=== PATIENT | female | born 1950 | race Caucasian/White ===

== ENCOUNTER 2020-04-18 09:32 | Day surgery (SDC) | payer MEDICARE, OTHER ==
[~2020-04-18] VITALS: Ht 177.8 cm; Wt 102.4 kg
[2020-04-18] VITALS (10 sets, daily range): BP systolic 110–135; BP diastolic 54–79; PULSE 72–97; TEMP 98.5
[2020-04-18] MEDS ORDERED: METHOTREXA2.5 MG/TAB PO (10:26)
[2020-04-18] MEDS ORDERED: FOLIC ACID 11 MG/TA1 PO (10:27)
[2020-04-18] MEDS ORDERED: HUMIRA PEN40 MG/0.4 SQ (10:27)
[2020-04-18] MEDS ORDERED: PROTONIX 40MG T40 MG PO (10:28)
[2020-04-18] MEDS ORDERED: PEPCID 20MG TAB20 MG PO (10:28)
[2020-04-18] MEDS ORDERED: DIOVAN 160MG160 MG PO (10:29)
[2020-04-18] MEDS ORDERED: NORVASC 5MG5 MG/TAB PO (10:29)
[2020-04-18] MEDS ORDERED: SINGULAIR 110 MG/TAB PO (10:30)
[2020-04-18] MEDS ORDERED: ZYRTEC 10MG10 MG PO (10:30)
[2020-04-18] MEDS ORDERED: FLONASEALLERGY NS (10:30)
[2020-04-18] MEDS ORDERED: RT SPIRIVA18 MCG IH (10:31)
[2020-04-18] MEDS ORDERED: PROAIR HFA0.09 MG/AC IH (10:31)
[2020-04-18] MEDS ORDERED: RT ADVAIR 228 DISKUS IH (10:32)
[2020-04-18] MEDS ORDERED: LIPITOR 40MG TA40 MG PO (10:32)
[2020-04-18] MEDS ORDERED: MUCINEX 60600 MG/TA1 PO (10:33)
[2020-04-18] MEDS ORDERED: MASON NATURAL2000 IU PO (10:33)
[2020-04-18] MEDS ORDERED: ONE-A-DAY ESSE1 EACH PO (10:34)
[2020-04-18] MEDS ORDERED: FISH OIL 1000MG1 CAP PO (10:34)
[2020-04-18] MEDS ORDERED: PREDNISONE20 MG PO (10:35)
[2020-04-18 10:50] LABS: HEMOGLOBIN 12.3 g/dl (12.5-16.0); MEAN CELL VOLUME 99 fl (80.0-100.0); MEAN CORPUSCULAR HEMOGLOBIN 32 pg (27.0-31.0); MEAN CORPUSCULAR HGB CONC 32 g/dl (33.0-37.0); MEAN PLATELET VOLUME 9.8 fl (7.4-10.4); PLATELET COUNT 297 K/mm3 (130-400); RED BLOOD COUNT 3.84 M/mm3 (4.10-5.30); REDCELL DISTRIBUTION WIDTH-CV 13.6 % (11.5-14.5)
[2020-04-18 11:04] LABS: PROTHROMBIN TIME 10.6 SECONDS (9.7-12.8)
[2020-04-18 11:07] LABS: PARTIAL THROMBOPLASTIN TIME 28.6 SECONDS (26.0-37.0)
[2020-04-18 11:13] LABS: CALCIUM 9.8 mg/dL (8.4-10.2); CREATININE, serum 1.38 (0.52-1.25); POTASSIUM 4.3 mmol/L (3.4-5.0)
--- NOTE | 2020-04-18 12:08 | NUR ---
SEE MERGE FOR ALL MEDICATION ADMINISTRATION TIMES, INTRA AND POST SEDATION ASSESSMENT
--- NOTE | 2020-04-18 13:00 | NUR ---
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 pt aware of poc.
--- NOTE | 2020-04-18 16:15 | NUR ---
[facility] did well during recovery. TR band was deflated without incident, rt radial puncture site dressed with bandaid, folded 2x2 and coban, cms intact distal. i have revied dc and fu instructions with pt, no questions at time of departure. IV was dc'd, cath intact, dressing applied.
== END 2020-04-18 20:50 | disposition home or self-care (01) ==
LOC: COL.CAR 09:32
PROVIDERS: Internal Medicine Interventional Cardiology
DX: R06.02 Shortness of breath (principal); I25.10 Atherosclerotic heart disease of native coronary artery without angina pectoris; R94.39 Abnormal result of other cardiovascular function study; I65.23 Occlusion and stenosis of bilateral carotid arteries; I10 Essential (primary) hypertension; Z79.51 Long term (current) use of inhaled steroids; Z87.891 Personal history of nicotine dependence; Z91.041 Radiographic dye allergy status
CPT/HCPCS: J1200; J1644; J2250; J3010; Q9967

== ENCOUNTER → 2021-09-08 | Outpatient (CLI) | payer MEDICARE, OTHER ==
[~2021-09-08] MED LIST: DIOVAN 160MG160 MG PO; FISH OIL 1000MG1 CAP PO; FLONASEALLERGY NS; FOLIC ACID 11 MG/TA1 PO; HUMIRA PEN40 MG/0.4 SQ; LIPITOR 40MG TA40 MG PO; MASON NATURAL2000 IU PO; METHOTREXA2.5 MG/TAB PO; MUCINEX 60600 MG/TA1 PO; NORVASC 5MG5 MG/TAB PO; ONE-A-DAY ESSE1 EACH PO; PEPCID 20MG TAB20 MG PO; PREDNISONE20 MG PO; PROAIR HFA0.09 MG/AC IH; PROTONIX 40MG T40 MG PO; RT ADVAIR 228 DISKUS IH; RT SPIRIVA18 MCG IH; SINGULAIR 110 MG/TAB PO; ZYRTEC 10MG10 MG PO
== END ==
LOC: COL.RAD 12:39
DX: Z12.2 Encounter for screening for malignant neoplasm of respiratory organs (principal); F17.210 Nicotine dependence, cigarettes, uncomplicated

== ENCOUNTER 2021-10-19 06:19 | Day surgery (SDC) | payer MEDICARE, OTHER ==
[2021-10-19] VITALS (9 sets, daily range): BP systolic 124–145; BP diastolic 44–81; PULSE 52–66; TEMP 97.5–98
[~2021-10-19] VITALS: Ht 177.8 cm; Wt 78.3 kg
[2021-10-19] MEDS ORDERED: FOLIC ACID 11 MG/TA1 PO (06:28)
[2021-10-19] MEDS ORDERED: METHOTREXA2.5 MG/TAB PO (06:28)
[2021-10-19] MEDS ORDERED: HUMIRA(CF)40 MG/0.4 SQ (06:28)
[2021-10-19] MEDS ORDERED: PEPCID40 MG PO (06:29)
[2021-10-19] MEDS ORDERED: PROTONIX 40MG T40 MG PO (06:29)
[2021-10-19] MEDS ORDERED: DIOVAN320 MG PO (06:30)
[2021-10-19] MEDS ORDERED: FLONASEALLERGY NS (06:31)
[2021-10-19] MEDS ORDERED: ZYRTEC 10MG10 MG PO (06:31)
[2021-10-19] MEDS ORDERED: SINGULAIR 110 MG/TAB PO (06:31)
[2021-10-19] MEDS ORDERED: LIPITOR 40MG TA40 MG PO (06:32)
[2021-10-19] MEDS ORDERED: PROAIR HFA0.09 MG/AC IH (06:32)
[2021-10-19] MEDS ORDERED: STIOLTO RESPIMAT4 GM IH (06:32)
[2021-10-19] MEDS ORDERED: MASON NATURAL2000 IU PO (06:33)
[2021-10-19] MEDS ORDERED: EPA FISH OIL1000 MG PO (06:33)
[2021-10-19] MEDS ORDERED: MUCINEX 60600 MG/TA1 PO (06:33)
[2021-10-19] MEDS ORDERED: MULTI VITAMINS1 TAB PO (06:34)
[2021-10-19] MEDS ORDERED: TOPROL XL 25MG25 MG PO (06:34)
[2021-10-19] MEDS ORDERED: ASPIRIN 81M81 MG/TA2 PO (06:34)
[2021-10-19] MEDS ORDERED: OXYGEN NASAL.CANN (06:35)
[2021-10-19] MEDS ORDERED: DEMADEX10 MG PO (07:17)
--- NOTE | 2021-10-19 14:52 | NUR ---
PT TO ROOM 329 PER BED WITH REPORT FROM [facility] PACU @[id number]. PT IS A/O X4, LUNGS CTA WITH DIMINISHED BASES BILATERALLY. BOWEL SOUNDS PRESENT. DRESSING TO RIGHT KNEE CDI WITH HEMOVAC INTACT WITH MOD AMT OF BLOODY DRAINAGE. IV PER ORDERS. PT EATING AND DRINKING AT THIS TIME.
--- NOTE | 2021-10-19 22:01 | NUR ---
PATIENT ASLEEP ON ROOM ENTRY. AWAKENS EASILY. ALERT AND ORIENTED. HS MEDS PER EMAR. AMBULATED X1 ASSIST AND USE OF WALKER TO BATHROOM AND VOIDED CLEAR YELLOW URINE WITHOUT ISSUE. C/O MODERATE PAIN 6/10 AFTER WALKING AND PRN JOEY WAS GIVEN. R KNEE DRESSING CDI WITH HEMOVAC IN PLACE, DRAINING BLOODY OUTPUT, 110 MLS WAS DRAINED AT THIS TIME. SCD TO L LEG STARTED. ICE TO R KNEE. DENIES ADDITIONAL NEEDS. CURRENTLY RESTING IN BED, EYES CLOSED, RR EVEN AND UNLABORED.
[2021-10-20 00:03] VITALS: BP 104/41; PULSE 52; TEMP 97.5
[2021-10-20 04:27] VITALS: BP 122/41; PULSE 55; TEMP 97.5
[2021-10-20 06:42] LABS: HEMATOCRIT 28.5 % (37.0-47.0); HEMOGLOBIN 9.4 g/dl (12.5-16.0)
[2021-10-20 07:11] LABS: CALCIUM 8.5 mg/dL (8.4-10.2); CREATININE, serum 1.68 mg/dL (0.57-1.11); POTASSIUM 3.8 mmol/L (3.5-4.5)
[2021-10-20 07:48] VITALS: BP 119/58; PULSE 56; TEMP 97.8
--- NOTE | 2021-10-20 10:32 | NUR ---
Loader Operator met with patient to discuss discharge planning. Patient lives in [facility] with her , Kenny (ph#[phone]) and sees RADHA Sifuentes for primary care. Patient normally obtains medications from [place], however she wants to use [facility] in [place] for any discharge medications. Patient has a walker for recovery from her surgery, but normally does not use any DME and is independent with ADLS. Patient reports her , Kenny is her DPOA-HC. Patient plans to return home at discharge and hopes she can return home today. Discharge Plan: Home
[2021-10-20 11:39] VITALS: BP 122/46; PULSE 51; TEMP 97.4
[2021-10-20] MEDS ORDERED: CELEBREX 200MG200 MG PO (12:18)
[2021-10-20] MEDS ORDERED: ULTRAM ER100 MG PO (12:18)
[2021-10-20] MEDS ORDERED: ASPIRIN E.C. 8181 MG PO (12:18)
[2021-10-20] MEDS ORDERED: CEPHALEXIN500 M1 PO (12:18)
--- NOTE | 2021-10-20 14:00 | NUR ---
Initial visit; Patient thanked Elevator Adjuster for looking in on her and appears to be doing well. Patient seems very optimistic though asked Elevator Adjuster to keep her in her prayers.
--- NOTE | 2021-10-20 15:20 | NUR ---
PT DISCHARGED TO HOME WITH FAMILY VIA PRIVATE VEHICLE, TAKEN TO EXIT VIA WC PUSHED BY ASTER CAMPBELL. PT GIVEN DISCHARGE INSTRUCTIONS ET EDUCATION, VERBALIZES UNDERSTANDING. HEMOVAC WAS REMOVED BY HEBER TORRES ET TEGADERM DRESSING PLACED TO SITE. AQUACELL IS IN PLACE TO RIGHT KNEE. TEGADERM IN PLACE TO RIGHT MURPHY SKIN TEAR. PT HAS BEEN GIVEN EXTRA TEGADERMS FOR SKIN TEAR DRESSINGS. PT HAS WORKED WITH PT/OT TODAY, AMBULATES TO BR WITH WALKER ET SBA ET SITS IN CHAIR FOR MEALS.
== END 2021-10-20 15:20 | disposition home or self-care (01) ==
LOC: SDCO 06:19 → SURG 14:15 → SDCO 10-20 15:20
PROVIDERS: Orthopaedic Surgery
DX: M17.11 Unilateral primary osteoarthritis, right knee (principal); Z87.891 Personal history of nicotine dependence
CPT/HCPCS: OP; 99222; A9284; C1713; C1776; J0690; J1580; J1885; J2175; J2250; J2270; J2405; J2704; J2795; J7030; J7120; J8610

== ENCOUNTER 2021-12-30 07:24 | Day surgery (SDC) | payer MEDICARE, OTHER ==
[~2021-12-30] VITALS: Ht 180.3 cm; Wt 73.5 kg
[2021-12-30] VITALS (10 sets, daily range): BP systolic 94–128; BP diastolic 30–59; PULSE 50–76; TEMP 97.9–98
[~2021-12-30 07:24] MED LIST changes: +ASPIRIN 81M81 MG/TA2 PO; +ASPIRIN E.C. 8181 MG PO; +CELEBREX 200MG200 MG PO; +CEPHALEXIN500 M1 PO; +DEMADEX10 MG PO; +DIOVAN320 MG PO; +EPA FISH OIL1000 MG PO; +HUMIRA(CF)40 MG/0.4 SQ; +MULTI VITAMINS1 TAB PO; +OXYGEN NASAL.CANN; +PEPCID40 MG PO; +STIOLTO RESPIMAT4 GM IH; +TOPROL XL 25MG25 MG PO; +ULTRAM ER100 MG PO
--- NOTE | 2021-12-30 15:38 | NUR ---
HOSPITALIST TEAM ROUNDING, SEE ORDERS.
--- NOTE | 2021-12-30 15:45 | NUR ---
Patient arrived to the clinic alert and oriented. Lungs CTA, bowel sound active in all river. IVF infusing on the left hand without difficulty. Dressing and brace on left knee intact. Patient is able to move toes slightly. Patient denies pain at this time. Will continue monitoring patient.
--- NOTE | 2021-12-30 15:48 | NUR ---
Patient awake laying in the bed. VSS . Dressing on left knee intact. Ice chips offered. Patient tolerated well. Spouse at the bedside . Patient reports of feeling cold. Bear hugger provided. Spouse at the bedside and call tavarez within reach. Will continue monitoring patient.
--- NOTE | 2021-12-30 15:52 | NUR ---
Patient laying in bed awake, spouse at the bedside. VSS. Patient c/o feeling hungry and ordered regular meal. Patient c/o feeling nauseous from eating meal. Patient stopped eating lunch and liquids offered. Patient tolerated liquids well. Patient denies pain at this time. Will continue monitoring patient.
--- NOTE | 2021-12-30 16:21 | NUR ---
Patient resting in bed alert and oriented. Dressing on left knee intact. VSS . Patient denies of pain and n/v. IVF infusing. Call tavarez place within reach. Spouse at the bedside.
--- NOTE | 2021-12-30 17:12 | NUR ---
Patient awake in bed. VSS . Dressing on left knee intact. Patient denies episode of n/v and pain. Will continue to monitor patient.
--- NOTE | 2021-12-30 17:37 | NUR ---
Patient c/o severe pain at left knee. Patient rated pain level 10/10. Pain meds administered. Will reassess pain level Call tavarez place within reach.
--- NOTE | 2021-12-30 17:44 | NUR ---
Patient sleeping in bed. IVF infusing. Dressing intact. SCD in place. Will continue to monitor patient.
--- NOTE | 2021-12-30 17:49 | NUR ---
Patient alert and oriented. Patient attempts to eat dinner but felt a little bit nauseous and unabe to eat meal. Patient rated pain level 4/10. Call tavarez place within reach.
--- NOTE | 2021-12-30 21:15 | NUR ---
Patient A/O x 3, with IV infusing well on left hand, at 2100 patient vomited out brownish vomitus looks like with red jello and approximately 50ml, she felt fine after she puked, dressing clean dry and intact, with knee immobilizer, SCD's on, was able to get up to the bedside commode and peed, rated her pain as 1/10, will continue to monitor.
[2021-12-31 01:00] VITALS: BP 116/54; PULSE 57; TEMP 97.5
--- NOTE | 2021-12-31 03:00 | NUR ---
Patient got up to the bedside commode and peed, denies nausea/ vomiting, c/o of pain on the surgical site, oxycodone given, will continue to monitor, transfers 1-2 assist.
[2021-12-31 04:00] VITALS: BP 125/51; PULSE 62; TEMP 98.2
[2021-12-31 07:24] LABS: CALCIUM 8.3 mg/dL (8.4-10.2); CREATININE, serum 1.14 mg/dL (0.57-1.11); POTASSIUM 4.7 mmol/L (3.5-4.5)
[2021-12-31 07:25] LABS: HEMATOCRIT 25.7 % (37.0-47.0); HEMOGLOBIN 8.1 g/dl (12.5-16.0)
[2021-12-31 08:09] VITALS: BP 146/51; PULSE 68; TEMP 97.5
--- NOTE | 2021-12-31 08:22 | NUR ---
Pt doing well this morning. Pt does have some pain complaints, PRN pain medication given. Pt has been up to the restroom, standby assist with walker. Pt has also worked with PT this am, pt currently sitting up in the chair. Assisted her with ordering breakfast. Gave her some applesauce with crackers to eat with medications.
--- NOTE | 2021-12-31 10:18 | NUR ---
Initial visit; Patient thanked Nuclear Technician for loking in on her. Patient is doing well, she reports she had surgery on the other knee in October so she "knows the drill." Patient thanked Nuclear Technician for keeping her in her prayers.
[2021-12-31 11:41] VITALS: BP 118/69; BP 118/691; BP 125/41; PULSE 59; PULSE 86; TEMP 97.7; TEMP 98.1
--- NOTE | 2021-12-31 14:11 | NUR ---
PT has worked with pt on stairs and pt did well. Dr Mercedes has been in to see patient and discussed discharge post PT/OT. Pt is hopeful to get to go home. Pt currently working with OT. Pts has been present for physician rounding, PT and OT. Multiple questions asked and answered
[2021-12-31] MEDS ORDERED: ASPIRIN 81M81 MG/TA2 PO (14:38)
[2021-12-31] MEDS ORDERED: NORCO 325 MG-51 TAB PO (14:39)
[2021-12-31] MEDS ORDERED: CEPHALEXIN500 M1 PO (14:39)
[2021-12-31] MEDS ORDERED: CELEBREX 200MG200 MG PO (14:40)
--- NOTE | 2021-12-31 15:07 | NUR ---
Reviewed discharge instructions with pt and her spouse. Discussed activity, showering, knee immobilizer, follow up appointment and prescriptions. All questions answered and pt escorted out via wheelchair.
--- NOTE | 2021-12-31 15:56 | NUR ---
manufacturing worker met with patient to complete intake and discuss discharge plan. Patient reports that she lives at home in [place] with her Rick. Cox present at bedside. Patient reports to being fully independent with her ADL's . She had other knee replaced six months ago and has been utilizing a walker during the healing process. 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 She does use 2L of [place] oxygen at night that is managed through [facility]. She states she does have a DPOA-HC established and [facility] has a copy on file. SW spoke with the patient out PT/OT recommendations of outpatient therapy. Patient states that the MD has her in a brace for two weeks and at her two week follow up will order PT through [facility] at that time. Discharge plan: Home with spouse. Outpatient PT at a later time.
== END 2021-12-31 15:09 | disposition home or self-care (01) ==
LOC: SDCO 07:24 → SURG 13:00 → SDCO 12-31 15:09
PROVIDERS: Physician Assistant
DX: M17.12 Unilateral primary osteoarthritis, left knee (principal); M21.062 Valgus deformity, not elsewhere classified, left knee; M81.0 Age-related osteoporosis without current pathological fracture; J44.9 Chronic obstructive pulmonary disease, unspecified; E78.5 Hyperlipidemia, unspecified; R00.1 Bradycardia, unspecified; I10 Essential (primary) hypertension; M06.9 Rheumatoid arthritis, unspecified; D64.9 Anemia, unspecified; K21.9 Gastro-esophageal reflux disease without esophagitis; Z79.899 Other long term (current) drug therapy; Z86.79 Personal history of other diseases of the circulatory system; Z87.891 Personal history of nicotine dependence
CPT/HCPCS: OP; A9284; C1713; C1776; J0690; J1580; J1885; J2250; J2270; J2704; J2795; J7030; J7120; L1830